=== PATIENT | female | born 1970 | race African-American/Black ===

== ENCOUNTER 2016-12-10 16:01 | Emergency (ER) | payer SELFPAY ==
[~2016-12-10] VITALS: Ht 167.6 cm; Wt 125.0 kg
[2016-12-10 16:09] VITALS: BP 178/98
== END 2016-12-10 18:33 | disposition left against medical advice (07) ==
LOC: ER 16:12
DX: M25.522 Pain in left elbow (principal); Z53.21 Procedure and treatment not carried out due to patient leaving prior to being seen by health care provider

== ENCOUNTER 2016-12-15 13:53 | Emergency (ER) | payer SELFPAY ==
[~2016-12-15] VITALS: Ht 172.7 cm; Wt 125.0 kg
[2016-12-15 23:40] VITALS: BP 178/88
== END 2016-12-15 23:40 | disposition home or self-care (01) ==
LOC: ER 15:17
DX: S80.12XA Contusion of left lower leg, initial encounter (principal); H10.9 Unspecified conjunctivitis; J45.909 Unspecified asthma, uncomplicated; I10 Essential (primary) hypertension; F17.200 Nicotine dependence, unspecified, uncomplicated; F12.10 Cannabis abuse, uncomplicated; X58.XXXA Exposure to other specified factors, initial encounter; Y93.89 Activity, other specified; Y92.89 Other specified places as the place of occurrence of the external cause; Y99.8 Other external cause status
CPT/HCPCS: 99283

== ENCOUNTER 2016-12-18 23:08 | Emergency (ER) | payer SELFPAY | END 2016-12-18 23:27 | disposition left against medical advice (07) | LOC: ER 23:08 | DX: Z53.21 Procedure and treatment not carried out due to patient leaving prior to being seen by health care provider (principal) ==